=== PATIENT | female | born 1945 | race Caucasian/White ===

== ENCOUNTER 2021-04-23 18:17 | Emergency (ER) | payer OTHER ==
[~2021-04-23] VITALS: Ht 162.6 cm; Wt 73.9 kg
[2021-04-23 18:49] LABS: BASOPHILS 0.2 % (0.0-2.0); EOSINOPHILS 1.5 % (0.0-3.0); HEMATOCRIT 38.1 % (37.0-47.0); HEMOGLOBIN 12.6 gm/dL (12.0-15.0); LYMPHOCYTES 18.4 % (24.0-44.0); MCV 87.8 fL (80.0-100.0); MONOCYTES 6.3 % (1.0-8.0); PLATELET COUNT 223 thou/uL (150-400); POLYS 73.6 % (36.0-66.0); RBC 4.34 mil/uL (4.20-5.00); RDW 13.8 % (10.5-14.5); WBC 9.5 thou/uL (4.0-11.0)
[2021-04-23 19:21] LABS: CALCIUM 11.1 mg/dL (8.5-10.1); CREATININE 1.3 mg/dL (0.6-1.0); POTASSIUM 4.6 mmol/L (3.5-5.1)
[2021-04-23 19:26] LABS: ALBUMIN 3.6 g/dL (3.4-5.0); TOTAL BILIRUBIN 0.5 mg/dL (0.2-1.0); TOTAL PROTEIN 7.2 g/dL (6.4-8.2)
[2021-04-23 19:47] VITALS: BP 152/66
--- NOTE | 2021-04-24 06:44 | EKG ---
[address] [place] [address] ELECTROCARDIOGRAM REPORT Name: AJITLEO CYRUS Room #: DEP [facility], CENTINELA CAMPUSHipolito#: [id number] Admission: 04/23/21 Attend Phys: Discharge: 04/23/21 Date of : 41 Report #: [id number] [facility] ED Test Date: 2021-04-23 Test Time: 18:31:41 Pat Name: LEO FONG Department: Room: Gender: F [employer]: ROXY : 1945 Requested By: Mitch Jorge Order Number: [id number] MD: Khoa Simms Measurements Intervals [place] Rate: 76 P: -13 NC: 201 QRS: -24 QRSD: 128 T: 32 QT: 409 QTc: 460 Interpretive Statements Sinus rhythm IVCD, consider atypical RBBB Compared to ECG 12/05/1993 11:11:00 No significant changes Electronically Signed On 04-24-2021 6:44:45 CDT by Khoa Simms [email or web address] <ELECTRONICALLY SIGNED> By: Khoa Simms MD, [facility] 04/24/21 [id number] Khoa Simms MD, FACC /EPI
== END 2021-04-23 21:00 | disposition home or self-care (01) ==
LOC: ER 18:17
PROVIDERS: Emergency Medicine Emergency Medical Services
DX: E11.649 Type 2 diabetes mellitus with hypoglycemia without coma (principal); G89.29 Other chronic pain; M54.9 Dorsalgia, unspecified